=== PATIENT | male | born 1955 | race Two or more races ===

== ENCOUNTER 2018-11-13 08:45 | Day surgery (SDC) | payer MEDICARE, OTHER ==
[2018-11-13] VITALS (8 sets, daily range): BP systolic 127–182; BP diastolic 44–80
[~2018-11-13] VITALS: Ht 180.3 cm; Wt 113.4 kg
[2018-11-13] MEDS ORDERED: RENVELA0.8 GM ORAL (10:24)
[2018-11-13] MEDS ORDERED: ATORVASTATIN CA40 MG ORAL (10:25)
[2018-11-13] MEDS ORDERED: PANTOPRAZOLE SO40 MG ORAL (10:25)
[2018-11-13] MEDS ORDERED: FLOMAX0.4 MG ORAL (10:26)
[2018-11-13] MEDS ORDERED: HYDRALAZINE HCL50 MG ORAL (10:26)
[2018-11-13] MEDS ORDERED: FUROSEMIDE80 M1 ORAL (10:27)
[2018-11-13] MEDS ORDERED: METOLAZONE10 MG PO (10:27)
[2018-11-13] MEDS ORDERED: SYNTHROID112 MCG ORAL (10:28)
[2018-11-13] MEDS ORDERED: AMLODIPINE BESY10 MG ORAL (10:28)
[2018-11-13] MEDS ORDERED: AMIODARONE HCL400 M1 ORAL (10:29)
[2018-11-13] MEDS ORDERED: ASPIR 8181 MG ORAL (10:30)
[2018-11-13] MEDS ORDERED: CATAPRES0.1 MG ORAL (10:30)
[2018-11-13] MEDS ORDERED: ISOSORBIDE MONO60 M1 PO (10:32)
[2018-11-13] MEDS ORDERED: METOPROLOL TART25 MG ORAL (10:33)
[2018-11-13] MEDS ORDERED: ACETAMINOPHEN500 MG ORAL (10:33)
[2018-11-13] MEDS ORDERED: NS 500ML IVPB ONE (12:50)
--- NOTE | 2018-11-13 13:29 | Pre-Procedure Note/Attestation ---
Pre-Procedure Note/Attestation Complete Prior to Procedure Planned Procedure: right Procedure Narrative: right arm AVF and poss. HD cath. replacement Indications for Procedure Pre-Operative Diagnosis: ESRD Attestation I attest that I discussed the nature of the procedure; its benefits; risks and complications; and alternatives (and the risks and benefits of such alternatives ), prior to the procedure, with the patient (or the patient's legal guest service representative). I attest that, if there was a reasonable possibility of needing a blood transfusion, the patient (or the patient's legal guest service representative) was given the [facility] standardized written summary, pursuant to the Ferny Suly Blood Safety Act ([place] Health and Safety Code # 1645, as amended). I attest that I re-evaluated the patient just prior to the surgery and that there has been no change in the patient's H&P, except as documented below: Chacorta Moseley MD November 13, 2018 13:29
[2018-11-13] MEDS ORDERED: Bacitracin Oint 15gm Tube TOPIC ONE (14:00)
[2018-11-13] MEDS ORDERED: Bacitracin 50000 Units Vial ONE (14:00)
[2018-11-13] MEDS ORDERED: LR 1000ml ONE (14:00)
[2018-11-13] MEDS ORDERED: Heparin 1000 units/ml 1ml Vial ONE (14:00)
[2018-11-13] MEDS ORDERED: NS Irrig 1000ml ONE (14:00)
[2018-11-13] MEDS ORDERED: Sterile Water Irrig 1000ml IRRIG ONE (14:00)
[2018-11-13] MEDS ORDERED: Heparin 5000 units/ml inj ONE (14:00)
[2018-11-13] MEDS ORDERED: NS 500ML ONE (14:00)
[2018-11-13] MEDS ORDERED: Bupivacaine 0.5% Inj 30 ml vial INJ ONE (14:00)
[2018-11-13] MEDS ORDERED: Lidocaine 1% Plain 30 ml INJ ONE (14:00)
[2018-11-13] MEDS ORDERED: LR 1000ml 1,000 ML IVLG SCH (14:02)
[2018-11-13] MEDS ORDERED: Sodium Chloride 10ml vial INJ ONE (14:04)
[2018-11-13] MEDS ORDERED: Lidocaine 1% MPF 10mg/ml 5ml ONE (14:04)
[2018-11-13] MEDS ORDERED: Dexamethasone 4mg/ml vial ONE (14:04)
[2018-11-13] MEDS ORDERED: Propofol 200mg/20ml IV ONE (14:04)
--- NOTE | 2018-11-13 14:09 | Anethesia Preoperative Eval ---
Anesthesia Pre-op PMH/ROS General Date of Evaluation: November 13, 2018 Time of Evaluation: 14:04 Anesthesiologist: Teri ASA Score: ASA 3 Mallampati Score Class I : Soft palate, uvula, fauces, pillars visible Class II: Soft palate, uvula, fauces visible Class III: Soft palate, base of uvula visible Class IV: Only hard plate visible Mallampati Classification: Class III Surgeon: Lorelei Diagnosis: ESRD Surgical Procedure: R Arm A/V Fistula Anesthesia History: none Family History: no anesthesia problems Allergies: Coded Allergies: No Known Allergies (Unverified , 11/13/18) Medications: see eMAR Patient NPO?: Yes Past Medical History Cardiovascular: Reports: HTN, other - HL Gastrointestinal/Genitourinary: Reports: ESRD, other - BPH Endocrine: Reports: hypothyroidism HEENT: Reports: cataract (L), cataract (R) Other: obesity - BMI 37 PSxH Narrative: Cataract SX, L Upper Arm Sx Anesthesia Pre-op Phys. Exam Physician Exam Last Vital Signs Date Time Temp Pulse Resp B/P (MAP) Pulse Ox O2 Delivery O2 Flow Rate FiO2 11/13/18 10:34 Room Air 11/13/18 10:10 97.6 69 18 144/72 97 Constitutional: NAD Neurologic: CN 2-12 intact Cardiovascular: RRR Respiratory: CTA Gastrointestinal: S/NT/ND Airway Exam Mallampati Score: Class III MO: limited ROM: limited Teeth: missing, intact Anesthesia Pre-op A/P Labs Chemistry Test 11/13/18 10:50 Potassium Level 4.9 MMOL/L (3.5-5.1) Risk Assessment & Plan Assessment: ASA 3 Plan: GA, SED Status Change Before Surgery: No Pre-Antibiotics Dru Grams Ancef IV Given Within 1 Hr of Incision: Yes Time Given: 14:28 Colby Williamson MD November 13, 2018 14:09
[2018-11-13] MEDS ORDERED: HYDROcodone/Acetamin 5/325 tab ORAL PRN (14:15)
[2018-11-13] MEDS ORDERED: fentaNYL 100 mcg/2 mL IV PRN (14:15)
[2018-11-13] MEDS ORDERED: Hydromorphone 0.5mg/0.5ml inj IVP PRN (14:15)
[2018-11-13] MEDS ORDERED: Labetalol 5mg/ml 20ml vial IV PRN (14:15)
[2018-11-13] MEDS ORDERED: Midazolam 2mg/2ml Inj IVP PRN (14:15)
[2018-11-13] MEDS ORDERED: HYDROcodone/Acetamin 7.5/325 tab ORAL PRN (14:15)
[2018-11-13] MEDS ORDERED: Ketorolac 30mg Inj IV PRN ×2 (14:15)
[2018-11-13] MEDS ORDERED: DiphenhydrAMINE 50mg/ml Inj IVP PRN (14:15)
[2018-11-13] MEDS ORDERED: Atropine Sulfate 0.4mg/ml inj IVP PRN (14:15)
[2018-11-13] MEDS ORDERED: oxyCODONE HCL/Acetaminophen 5/325mg ORAL PRN (14:15)
[2018-11-13] MEDS ORDERED: LORazepam Inj 2mg/ml 1ml IV PRN (14:15)
[2018-11-13] MEDS ORDERED: Metoclopramide 10mg/2ml Inj IVP PRN (14:15)
[2018-11-13] MEDS ORDERED: Meperidine 50mg/ml Inj(FOR RIGORS ONLY) IVP PRN (14:15)
--- NOTE | 2018-11-13 14:16 | Diagnostic Imaging Report ---
APPROVED REPORT CPT Code: 26799 Present Symptoms Comments: Pre-operative duplex scan of AV shunt Vein Measurements(cm) Cephalic Basilic Right LeftRight Left 0.20Upper Arm0.35Mid Upper Arm Mid Upper Arm0.28Antecubital Fossa 0.26Upper Forearm Doppler Evaluation (Left) Basilic (L): Thrombus, Cephalic (L) : Thrombus, VEIN MAPPING: The right basilic and cephalic veins were imaged and measured to evaluate as a potential graft for dialysis access. The left cephalic and basilic veins are occluded. LEFT UPPER EXTREMITY: AV Fistula: Imaging reveals stented cephalic vein and stented basilic vein, occluded arterio-venous fistula at the upper arm level. The arterial Doppler study waveform analysis is within normal limits. No evidence of acute deep vein thrombosis.
--- NOTE | 2018-11-13 15:14 | Immediate Post-Op Evaluation ---
Immediate Post-Op Evalulation Immediate Post-Op Evalulation Procedure: R Arm A/V Fistula Date of Evaluation: November 13, 2018 Time of Evaluation: 17:00 IV Fluids: 800 NS Blood Products: 0 Estimated Blood Loss: 25 Urinary Output: 0 Blood Pressure Systolic: 170 Blood Pressure Diastolic: 84 Pulse Rate: 62 Respiratory Rate: 16 O2 Sat by Pulse Oximetry: 100 Temperature (Fahrenheit): 97 Pain Score (1-10): 2 Nausea: No Vomiting: No Complications 0 Patient Status: awake, reacts, patent, extubated, none Hydration Status: adequate Dru Grams Anecf IV Given Within 1 Hr of Incision: Yes Time Given: 14:28 Colby Williamson MD November 13, 2018 15:14
[2018-11-13] MEDS ORDERED: Bupivacaine 0.25% Inj 30ml INJ ONE (15:59)
--- NOTE | 2018-11-13 17:07 | Brief Operative Note ---
Immediate Post Operative Note Operative Note Pre-op Diagnosis: ESRD Procedure: right arm AVF Post-op Diagnosis: same as pre-op Findings: consistent w/pre-op dx studies Surgeon: Charly Moseley Anesthesiologist: Charly Williamson Anesthesia: general Specimen: none Complications: none Condition: stable Fluids: see anesth. record Estimated Blood Loss: minimal Drains: none Implant(s) used?: No Chacorta Moseley MD November 13, 2018 17:07
--- NOTE | 2018-11-13 17:50 | NUR ---
ALL BELONGINGS GIVEN TO PATIENT INCLUDING VALUABLES WATCH AND WALLET WITH $163.00. DISCHARGE HOME AWAKE ALERT IN STABLE CONDITION . DRESSING D/I NO BLEEDING. NO C/O PAIN NO N/V.I INSTRUCTIONS GIVEN TO SISTER AND INTERPRETED TO HIM IN [facility] .
--- NOTE | 2018-11-19 16:00 | Operative Note - Dictated ---
DATE OF OPERATION: 11/13/2018 PREOPERATIVE DIAGNOSES: 1. Thrombosed dialysis shunt in the left upper extremity. 2. End-stage renal disease. POSTOPERATIVE DIAGNOSES: 1. Thrombosed dialysis shunt in the left upper extremity. 2. End-stage renal disease as well as findings below. PROCEDURES: 1. Creation of a new dialysis arteriovenous fistula in the right upper extremity (brachiobasilic). 2. Dilation of basilic vein. SURGEON: Chacorta Nelson M.D. ANESTHESIA: MAC with local. INDICATION: The patient is in need of a permanent access. Vein mapping showed adequate veins in the right arm for creation of an AV fistula. INTRAOPERATIVE FINDINGS: The basilic vein was adequate and AV fistula created as described below with good flow noted at the end of the procedure and good Doppler signals distally in the arm. PROCEDURE IN DETAIL: With the patient in supine position and after right upper extremity was prepped and draped in usual sterile fashion, skin was infiltrated with local anesthetic and a transverse incision was made over the right brachial artery pulse through which the vessel was identified and encircled with vessel loops proximally and distally. The basilic vein at this level was also exposed through the same incision, one medially and followed more distally where it was ligated and divided and after few curvatures, it was divided between silk ties and hemoclips were necessary. Enough length was mobilized for a direct anastomosis to the artery. The vein was flushed with heparinized saline and serial dilators up to 4 mm diameter were passed without significant resistance. The end of the vein was spatulated and after an oblique osteotomy was made in the brachial artery at this level through which the vessel was flushed with heparinized saline proximally and distally. The end-to-side anastomosis to the vein was then carried out with a continuous suture of 6-0 Prolene. After removal of the vessel, excellent flow to the vein was noted and a palpable thrill and ipsilateral Doppler signal distally were found to be satisfactory. After hemostasis was ensured, the wound was irrigated with antibiotic solution and closed with interrupted sutures of 3-0 Vicryl for deep layers followed by 4-0 Monocryl in a subcuticular continuous fashion for skin closure. Skin was cleaned and dried and Dermabond applied to the incision. The patient tolerated the procedure well and was transferred out of the room in stable condition. At the conclusion of the procedure, sponge, needle, and instrument counts were correct. ESTIMATED BLOOD LOSS: Minimal. COMPLICATIONS: None. DRAINS: None. SPECIMEN: None. Chacorta Nelson M.D. DR: ROGER JOB#: [id number] CC: Yao Salguero M.D.; Fax#: [phone] CHACORTA NELSON M.D. ; FAX#: [phone]
[2018-11-21] MEDS ORDERED: [UNRECOGNIZED DRUG - OTHER] PO (12:43)
[2018-11-21] MEDS ORDERED: DIPHENHYDRAMINE25 M1 ORAL (12:43)
== END 2018-11-13 17:50 | disposition home or self-care (01) ==
LOC: SUR 08:45
DX: T82.868A Thrombosis due to vascular prosthetic devices, implants and grafts, initial encounter (principal); N18.6 End stage renal disease; Z99.2 Dependence on renal dialysis; X58.XXXA Exposure to other specified factors, initial encounter; Y92.9 Unspecified place or not applicable
CPT/HCPCS: 36415; 36821; 84132; 93922; J0690; J1100; J1644; J2001; J2250; J2405; J2704; J3490; J7040; 94003; 94150